=== PATIENT | female | born 1980 | race Caucasian/White ===

== ENCOUNTER 2018-09-13 10:48 | Emergency (ER) | payer BC, SELFPAY ==
[2018-09-13] VITALS (28 sets, daily range): BP systolic 110–122; BP diastolic 64–74; PULSE 54–82; RESP 12–28; TEMP 37.3; O2SAT 95–99
--- NOTE | 2018-09-13 11:09 | ED.GENADUL_ITS ---
Discharge Plan Disposition Patient Disposition: HOME Discharge Details Chief Complaint: Palpitatns Clinical Impression: Frequent unifocal PVCs Primary Care Provider: Isabell Polo ED Provider: Otilio Valencia Home Meds and New Rx's Prescriptions: New magnesium oxide 200 mg tablet,chewable 400 mg PO DAILY Qty: 60 RF: 0 Continued diltiazem HCl 120 mg Capsule,Extended Release 12 Hr 120 mg PO DAILY RF: 0 sertraline 50 mg Tablet 50 mg PO DAILY RF: 0 Discharge Instructions Additional Instructions: We will placed your name to obtain a follow-up with her employment attorney for recheck and to review results of your seal patch. Please follow-up with Dr. pringle in clinic for recheck. Begin magnesium oxide as prescribed daily. Return to the emergency department for any acute concerns Medical Decision Making 38-year-old female presents complaining of 4-5 days of intermittent episodes of palpitations. They are worsened when doing her barn chores. She states she was seen at [facility] emergency department and had labs obtained on . She was diagnosed with PVCs. She does take diltiazem daily for history of SVT which is managed by Dr. Osorio; she has seen Dr. Mina David at [facility] in cardiology She arrives with normal vital signs, and unremarkable exam. Screening laboratories obtained, records obtained from last week's visit to the [facility] ED. labs obtained September 10 include CBC, basic, magnesium. These did not have any significant finding. Laboratories obtained today: Unremarkable including d-dimer Patient will note increased stress; She does have a history of generalized anxiety continue to take sertraline. Regardless, her PVCs may be having short runs that were captured on monitor today. Therefore, patient placed on Zio patch, she will follow-up with Dr. Osorio in clinic, and as well at her request a local cardiology follow-up appointment was requested. We will trial oral magnesium to see if it aids in suppressing some of her PVCs. She understands return precautions to the ER Lab Data Lab results reviewed: Yes I reviewed the patient's lab results. Laboratory Tests Range/Units 09/13/18 09/13/18 09/13/18 11:05 11:05 11:05 WBC (4.4-10.8) k/cumm 5.03 RBC (4.00-5.20) m/cumm 4.60 Hgb (12.0-15.5) g/dL 14.0 Hct (36.0-46.0) % 40.6 MCV (80-95) fL 88.3 MCH (27.0-33.0) pg 30.4 MCHC (32.0-36.0) g/dL 34.5 RDW (11.7-14.6) % 12.6 Plt Count (130-400) x1000/uL 231 MPV (8.0-11.0) fL 9.7 Immature Gran % 0.2 Neutrophils % 68.6 Lymphocytes % 21.5 Monocytes % 9.3 Eosinophils % 0.2 Basophils % 0.2 Absolute Neutrophils (1.2-6.7) k/cumm 3.45 Absolute Lymphocytes (1.2-3.4) k/cumm 1.08 L Absolute Monocytes (0.11-0.7) k/cumm 0.47 Absolute Eosinophils (0.0-0.7) k/cumm 0.01 Absolute Basophils (0.0-0.2) k/cumm 0.01 D-Dimer (<500) ng/mlFEU 190 Sodium (136-145) mmol/L 138 Potassium (3.5-5.1) mmol/L 3.5 Chloride (98-107) mmol/L 103 Carbon Dioxide (21.0-32.0) mmol/L 26.7 Anion Gap (3-11) mmol/L 8.3 BUN (7-18) mg/dL 12 Creatinine (0.55-1.02) mg/dL 0.73 Estimated GFR/1.73 m2 (mL/min/1.73m2) >= 60.00 Glucose (70-100) mg/dL 93 Calcium (8.5-10.1) mg/dL 8.9 Magnesium (1.8-2.4) mg/dL 1.9 Total Bilirubin (0.2-1.0) mg/dL 0.9 AST (15-37) U/L 27 ALT (12-78) U/L 42 Alkaline Phosphatase (46-116) U/L 53 Troponin I (0.00-0.06) ng/mL 0.02 Total Protein (6.4-8.2) g/dL 7.4 Albumin (3.4-5.0) g/dL 4.1 ECG Data Attestation: I personally reviewed and interpreted this ECG (s) as follows: Interpretation: Normal sinus rhythm, rate of 64, QRS is narrow, no ST segment elevation HPI General Mode of arrival: ambulatory . Date/Time Provider Initiated Documentation: 09/13/18 10:52 . Limitations to Documentation: no limitations . Information obtained by: patient . History of Present Illness 38 year old F presents to the emergency department with the chief complaint of Palpitations, described as moderate and similar to prior episodes, Quality is described as other, and is localized to the chest. Patient reports no radiation. Patient started experiencing this day(s) and it has been intermittent. No relieving factors improve symptom(s), Other factors that worsen symptoms (Exertion) . Patient notes other (Anxiety and nausea); denies chest pain, cough, diaphoresis and shortness of breath. Patient did receive the following treatments prior to arrival, other (Seen at [facility] ER on ) HPI Narrative: Intermittent palpitations over days time, history of same, no change to medications. Related Data Home Medications Medication Instructions Recorded Confirmed diltiazem HCl 120 mg PO DAILY 09/13/18 09/13/18 magnesium oxide 400 mg PO DAILY #60 tab 09/13/18 sertraline 50 mg PO DAILY 09/13/18 09/13/18 Previous Rx's Medication Instructions Recorded magnesium oxide 400 mg PO DAILY #60 tab 09/13/18 Allergies Allergy/AdvReac Type Severity Reaction Status Date / Time Sulfa (Sulfonamide Allergy Unknown Unverified 09/13/18 10:57 Antibiotics) General Stated Complaint: Palpitatns GRAYSON: 3 Review of Systems Review of Systems 8 systems reviewed and otherwise negative [facility] Social History Smoking/Tobacco Use Status: Former Tobacco Use Exam Narrative Exam Narrative: GEN: awake, alert, oriented 3. Pleasant, well groomed, interactive. HEAD: Normocephalic, atraumatic ENT: Mucous membranes moist, oropharynx unremarkable, External ear exam unremarkable EYES: PERRL, EOMI NECK: Full ROM, no MAGGIE, no menigismus CHEST/RESP: Nontender, clear to auscultation bilateral, no wheeze/rhonchi/rales CARDIOVASCULAR: RRR, no murmur, rub alexander. 2+ Rad pulse bilateral ABDOMEN: Soft, nontender, no mass. +Bowel sounds EXT: Full ROM, no edema, no rash Neuro: Grossly normal neurologic exam, conversant, interactive. Psych: Speech fluent, thoughts congruent, affect normal Course Vital Signs Temperature 37.3 C 09/13/18 10:53 Pulse 60 09/13/18 10:53 Respiratory Rate 12 09/13/18 10:53 Blood Pressure 122/70 09/13/18 10:53 Pulse Oximetry 98 09/13/18 10:53 Temperature 37.3 C 09/13/18 10:53 Temperature Source Temporal Artery Scan 09/13/18 10:53 Pulse 60 09/13/18 10:53 Respiratory Rate 12 09/13/18 10:53 Respiratory Effort Non-Labored 09/13/18 10:55 Blood Pressure 122/70 09/13/18 10:53 Blood Pressure Position Sitting 09/13/18 10:53 Pulse Oximetry 98 09/13/18 10:53 Oxygen Delivery Method Room Air 09/13/18 10:53 Oxygen Flow Rate 0 09/13/18 10:53 Pain Level 0 09/13/18 10:53
[2018-09-13] MEDS: MAGNESIUM SULFATE 2 GM/50 ML BAG IVPB (11:11)
[2018-09-13] MEDS: Normal Saline 250 ML 500 ML IV (11:11)
[2018-09-13] MEDS: Normal Saline Flush 10 ML SYR IVP (11:12)
[2018-09-13 11:14] LABS: Abs Immature Grans 0.01 k/cumm (0.0-0.09); Absolute Basophil Count 0.01 k/cumm (0.0-0.2); Absolute Eosinophil Count 0.01 k/cumm (0.0-0.7); Absolute Lymphocyte Count 1.08 k/cumm (1.2-3.4); Absolute Monocyte Count 0.47 k/cumm (0.11-0.7); Absolute Neutrophil Count 3.45 k/cumm (1.2-6.7); Basophils % 0.2; Eosinophils % 0.2; HCT 40.6 % (36.0-46.0); Immature Grans % 0.2; Lymphocytes % 21.5; Mean Corp. HGB Concentration 34.5 g/dL (32.0-36.0); Mean Corpuscular Hemoglobin 30.4 pg (27.0-33.0); Mean Corpuscular Volume 88.3 fL (80-95); Mean Platelet Volume 9.7 fL (8.0-11.0); Monocytes % 9.3; Neutrophils % 68.6; Platelet Count 231 x1000/uL (130-400); RBC Distribution Width 12.6 % (11.7-14.6); White Blood Cell Count 5.03 k/cumm (4.4-10.8)
[2018-09-13 11:37] LABS: ALT 42 U/L (12-78); AST 27 U/L (15-37); Albumin 4.1 g/dL (3.4-5.0); Alkaline Phosphatase 53 U/L (46-116); Anion Gap 8.3 mmol/L (3-11); BUN 12 mg/dL (7-18); Bilirubin, Total 0.9 mg/dL (0.2-1.0); CO2 26.7 mmol/L (21.0-32.0); CREATININE 0.73 mg/dL (0.55-1.02); Calcium 8.9 mg/dL (8.5-10.1); Chloride 103 mmol/L (98-107); Glucose 93 mg/dL (70-100); Magnesium 1.9 mg/dL (1.8-2.4); Potassium 3.5 mmol/L (3.5-5.1); Sodium 138 mmol/L (136-145); Total Protein 7.4 g/dL (6.4-8.2); Troponin I 0.02 ng/mL (0.00-0.06)
[2018-09-13 11:44] LABS: D-Dimer 190 ng/mlFEU (<500)
--- NOTE | 2018-10-02 08:40 | ZIOP_ITS ---
ZIO PATCH INTERPRETATION DATE OF DICTATION October 02, 2018 STUDY INDICATION Palpitations. REQUESTING PROVIDER Otilio Valencia M.D. FINDINGS The patient was monitored for 13 days and 8 hours. COMMENTS The predominant underlying rhythm was sinus rhythm. Average heart rate in sinus rhythm, 78 beats per minute, range 46-176 beats per minute. There was a single 7-beat supraventricular run with an average heart rate of 177 beats per minute. Th is run was patient triggered. There were no pauses greater than 3 seconds. There was no higher degree heart block. SYMPTOMS There were 30 patient events. One event correlated with supraventricular tachycardia, all other event s did not correlate with arrhythmias. FINAL INTERPRETATION Paroxysmal supraventricular tachycardia, symptomatic. Nithin Kaur M.D. BRADY/homero T - 10/02/2018
== END 2018-09-13 13:32 | disposition home or self-care (01) ==
PROVIDERS: Emergency Provider Emergency Medicine; PCP Physician Assistant Medical
DX: I49.3 Ventricular premature depolarization (principal); I47.1 Supraventricular tachycardia
CPT/HCPCS: 36415; 80053; 93005; 93225; 96365; 96366; 99284; 83735; 84484; 85025; 85379; 93010

== ENCOUNTER 2023-02-14 12:36 | Emergency (ER) | payer BC, SELFPAY ==
[2023-02-14 12:52] VITALS: BP 115/67; PULSE 76; RESP 14; TEMP 37.3; O2SAT 97
[2023-02-14 13:21] LABS: Bilirubin Negative (Negative); Blood Trace-intact (Negative); Clarity Clear (Clear); Glucose Negative (Negative); Ketones Trace mg/dL (Negative); Leukocyte Esterase Negative (Negative); Nitrite Negative (Negative); Urobilinogen 0.2 mg/dL (Up to 0.2)
--- NOTE | 2023-02-14 13:30 | DI.CT_ITS ---
Exam(s) CT ABDOMEN PELVIS W EXAM: CT ABDOMEN PELVIS W CLINICAL HISTORY: left lower abdominal pain. TECHNIQUE: Imaging Protocol: Axial computed tomography images with coronal and sagittal reformatted images were created and reviewed CONTRAST MATERIAL: Intravenous: Omnipaque-350 100cc Oral: None COMPARISON: No exams were available for comparison FINDINGS: VISUALIZED LUNG BASES: There is some scarring in lower lobe. No pleural effusions.. ABDOMEN: There is no ascites in the upper abdomen. LIVER: There is a faint lesion in the right hepatic lobe which measures 1.2 by 0.9 cm. 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 No other focal hepatic lesions evident. No prominent dilated intrahepatic ducts. No dilate d intrahepatic ducts. GALLBLADDER/BILIARY: No obvious gallbladder pathology. CBD is not dilated. PANCREAS: No evidence of pancreatic mass nor dilatation of the pancreatic duct. SPLEEN: Spleen is not enlarged. No obvious intrasplenic lesions. Splenic and portal veins are paten t. ADRENALS: There are no significant adrenal masses. KIDNEYS:No cysts evident. No solid renal masses. No calculi nor hydronephrosis.. ABDOMINAL AORTA: Abdominal aorta is not enlarged. LYMPH NODES:There is no retroperitoneal nor paraaortic adenopathy. ABDOMINAL WALL: No evidence of significant anterior abdominal wall nor inguinal hernia. GI: There is no evidence of bowel obstruction, free air, nor abscess. PELVIS: GI: No evidence of appendicitis.Left side of the colon appears concentrically thickened although diff icult to assess oral contrast as the lumen is collapsed. Cannot rule out subtle colitis pattern in [facility] descending-left colon. There are no diverticuli in left side of the colon. LYMPH NODES: There is no intrapelvic nor inguinal adenopathy. REPRODUCTIVE: There is an IUD in the uterus. It appears somewhat asymmetric in position. Probably extending into t myometrium anteriorly. Uterus enhances inhomogeneously. No abnormal left adnexal findings there are 2 cystic structures in the right adnexa with some surrounding fluid. These cystic structures have similar appearance and b oth measure approximately 2 by 1.8 cm. Difficult to determine if these are peripherally enhancing ov gabriel cysts or part of dilated ipsilateral fallopian tube. There are dilated veins in the adnexal regions consistent with pelvic congestion syndrome. There is small-moderate amount of free fluid noted in the pelvis. URINARY BLADDER: Not distended. No mass nor obvious calculi. OSSEOUS: No fractures and no significant osseous lesions. IMPRESSION: 1. There is an IUD in the uterine cavity which appears somewhat twisted and may be in suboptimal posi tion. The uterus is not enhance homogeneously. 2. There are 2 cystic structures in the right adnexa both measuring approximately 2 x 1.8 cm. These may possibly OB ovarian cyst or related to a dilated ipsilateral fallopian tube. Similar findings no t seen in the left adnexa. 3. Dilated bilateral periuterine veins, left larger than right possibly element of pelvic congestion syndrome. 4. There is some free fluid in the pelvis which is possibly related to the right adnexal findings 5. Subtle suggestion of circumferential thickening of the descending-left colon, difficult to assess without oral contrast in the lumen. May represent element of colitis. RADIATION DOSE DELIVERED: 820.51mGy.cm Total DLP DATA REPOSITORY: All CT scans at this facility are submitted to the National Radiology Data Registry (NRDR) Dose Index Registry (DIR) with the [employer] (ACR). RADIATION OPTIMIZATION: All CT scans at this facility use at least one of these dose optimization te chniques: automated exposure control; mA and/or kV adjustment per patient size (includes targeted exa ms where dose is matched to clinical indication); or iterative reconstruction.
--- NOTE | 2023-02-14 13:30 | DI.US_ITS ---
Exam(s) US TRANSVAGINAL EXAM: US TRANSVAGINAL CLINICAL HISTORY: left lower abdominal pain TECHNIQUE: Ultrasound of the pelvis was performed both transabdominal and transvaginal. COMPARISON: US OB US 2-3 TRIMESTER TRANSABD*P from 04/14/2013 FINDINGS: UTERUS: There is an IUD in the endometrial canal. Appears be in satisfactory position. Uterus measures 8.5 cm length x 4.3 cm AP x 4.9 cm wide. There are no uterine fibroids. Endometrial thickness measures 5 mm. There is no fluid in the endometrial canal. CERVIX: There are no obvious nabothian cysts. RIGHT OVARY: Measures 4.2 x 2.2 x 2.7 cm Contains multiple cysts ranging up to 2 cm size LEFT OVARY: Measures 2.8 x 1.1 x 2.2 cm No significant cysts nor masses evident in the left ovary. There are prominent bilateral para uterine veins, more so on the left side and increasing with Valsal va. Consistent with pelvic congestion syndrome CUL-DE-SAC: No free fluid evident. IMPRESSION: 1. There is an IUD in the endometrial canal. 2. Are cysts in the right ovary measuring up to 2 cm. 3. Dilated periuterine veins, more so on the left side. Consistent with pelvic congestion. These ve ins usually drain into a dilated gonadal vein which itself drains into the left renal vein. DATA REPOSITORY:
[2023-02-14 13:32] LABS: Bacteria Few HPF (Negative); C & S Indicated? No; Casts Negative LPF (Negative); Crystals Negative HPF (Negative); Epithelial Cells Rare HPF (Negative); Mucus Moderate (Negative); Other Cells Negative (Negative); WBC Negative HPF (0-5)
[2023-02-14 14:04] LABS: Abs Immature Grans 0.01 10^3/uL (0.0-0.06); Absolute Basophil Count 0.02 10^3/uL (0.0-0.2); Absolute Eosinophil Count 0.03 10^3/uL (0.0-0.7); Absolute Lymphocyte Count 1.15 10^3/uL (1.2-3.4); Absolute Monocyte Count 0.56 10^3/uL (0.1-0.8); Absolute Neutrophil Count 3.71 10^3/uL (1.2-6.7); Basophils % 0.4; Eosinophils % 0.5; HCT 37.1 % (36.0-46.0); HGB 12.6 g/dL (11.2-15.7); Immature Grans % 0.2; MCH 29.5 pg (27.0-33.0); MCV 87 fL (80-95); MPV 9.7 fL (8.0-11.0); Monocytes % 10.2; Neutrophils % 67.7; Platelet Count 217 10^3/uL (130-400); RBC 4.27 10^6/uL (3.93-5.22); RDW 12.2 % (11.7-14.6); RDW-SD 39.5 fL; WBC 5.48 10^3/uL (4.4-10.8)
[2023-02-14 14:20] LABS: ALT 16 U/L (14-59); AST 13 U/L (15-37); Albumin 3.8 g/dL (3.4-5.0); Alkaline Phosphatase 37 U/L (46-116); Anion Gap 5.9 mmol/L (3-11); BUN 13 mg/dL (7-18); Bilirubin, Total 0.7 mg/dL (0.2-1.0); CO2 27.1 mmol/L (21.0-32.0); CREATININE 0.7 mg/dL (0.55-1.02); Calcium 8.9 mg/dL (8.5-10.1); Chloride 106 mmol/L (98-107); Estimated GFR 111.36 (mL/min/1.73m2); Glucose 112 mg/dL (74-106); Lipase 25 U/L (16-77); Potassium 3.6 mmol/L (3.5-5.1); Sodium 139 mmol/L (136-145); Total Protein 6.9 g/dL (6.4-8.2)
[2023-02-14] MEDS: Normal Saline - Diluent 50 ML VIAL IJ (15:24)
[2023-02-14] MEDS: Normal Saline Flush 10 ML SYR IVP (15:25)
[2023-02-14] MEDS: Omnipaque 350 MG/ML 100 ML BTL IJ (15:25)
--- NOTE | 2023-02-14 16:26 | W.ED.GENAD ---
Discharge Plan Disposition Patient Disposition: Home Discharge Details Clinical Impression: Pelvic congestion syndrome, IUD (intrauterine device) in place Primary Care Provider: Isabell Polo ED Provider: Shruthi Gonzales Home Meds and New Rx's Prescriptions: New oxycodone 5 mg capsule 5 mg PO BID PRNQty: 7 0RF Continued magnesium chloride 64 mg tablet,delayed release (DR/EC) 64 mg PO BID Qty: 60 11RF diltiazem HCl 120 mg Capsule,Extended Release 12 Hr 120 mg PO DAILY Patient Comments: no i do not take sertraline 50 mg tablet 37.5 mg PO DAILY Patient Comments: does not take anymore Discharge Instructions Additional Instructions: You likely have pelvic congestion syndrome and your IUD is slightly displaced on CT scan, recommendation to follow-up with [facility] Ibuprofen and Tylenol for pain I placed a referral for [facility] I would continue with your colonoscopy You have a lesion on your liver, I do recommend you follow-up with your doctor regarding this finding Oxycodone very sparingly, this can be addictive Please return earlier should you have new or worsening complaints Referrals: Isabell Polo [Primary Care Provider] - Chayo Moran DO [OSTEOPATHIC DOCTOR] - Discharge Data Discharge Date/Time-TO BE ENTERED AT DEPARTURE: 02/14/23 16:47 Medical Decision Making 42-year-old female, tenderness left lower quadrant, no rebound or guarding CT and labs are ordered for further differentiation Urinalysis does not show acute abnormality, negative test CT abdomen and pelvis with evidence of pelvic congestion syndrome and possible displacement of IUD Referred to [facility] Small amount of opiate analgesia with risk of addiction reviewed Ibuprofen and Tylenol recommended Will need close outpatient reassessment with primary care physician and gynecology Return precautions reviewed and patient expressed understanding HPI General Date/Time Provider Initiated Documentation: 02/14/23 13:20. HPI Narrative: This 42-year-old female presents with abdominal pain and diarrhea for the past week. Denies any fever or chills. Denies any chest pain or shortness of breath. Denies any urinary complaints or chance of . Denies any nausea or vomiting. Denies any exacerbating or alleviating factors. Related Data Home Medications Medication Instructions Recorded Confirmed diltiazem HCl 120 mg 120 mg PO DAILY 09/13/18 10/02/18 capsule,extended release 12 hr magnesium chloride 64 mg 64 mg PO BID PVC #60 tabs 10/02/18 02/14/23 (magnesium chloride) tablet,delayed release sertraline 50 mg tablet 37.5 mg PO DAILY 10/02/18 10/02/18 oxycodone 5 mg capsule 5 mg PO BID PRN #7 caps 02/14/23 Previous Rx's Medication Instructions Recorded magnesium chloride 64 mg 64 mg PO BID PVC #60 tabs 10/02/18 (magnesium chloride) tablet,delayed release oxycodone 5 mg capsule 5 mg PO BID PRN #7 caps 02/14/23 Allergies Allergy/AdvReac Type Severity Reaction Status Date / Time Sulfa (Sulfonamide Allergy Unknown Unverified 02/14/23 13:34 Antibiotics) metoprolol AdvReac Intermediate Itching Unverified 02/14/23 13:38 General Stated Complaint: Abd Prob GRAYSON: 3 PFSH All Active Problems Pelvic congestion syndrome (Acute) IUD (intrauterine device) in place (Acute) Social History Smoking/Tobacco Use Status: Former Tobacco Use Smoking risk assessment performed?: Yes Drug use: Never Do you feel safe at home: Yes Do you feel safe in your relationship?: Yes Exam Narrative Exam Narrative: Patient calm and cooperative, no scleral icterus, lungs clear to auscultation, abdominal tenderness, predominantly in the suprapubic and right lower quadrant, no rebound or guarding Course Vital Signs Vital signs: Vital Signs Temperature 37.3 C 02/14/23 12:52 Pulse 76 02/14/23 12:52 Respiratory Rate 14 02/14/23 12:52 Blood Pressure 115/67 02/14/23 12:52 Pulse Oximetry 97 02/14/23 12:52 Temperature 37.3 C 02/14/23 12:52 Temperature Source Skin 02/14/23 12:52 Pulse 76 02/14/23 12:52 Respiratory Rate 14 02/14/23 12:52 Respiratory Effort Normal, Non-Labored 02/14/23 13:23 Blood Pressure 115/67 02/14/23 12:52 Blood Pressure Position Sitting 02/14/23 12:52 Pulse Oximetry 97 02/14/23 12:52 Oxygen Delivery Method Room Air 02/14/23 12:52 Oxygen Flow Rate 0 05/26/23 12:52 Pain Level 6 02/14/23 12:52 Lab/Test Results Lab/Test Results: Laboratory Tests Range/Units 02/14/23 02/14/23 02/14/23 13:06 13:58 13:58 WBC (4.4-10.8) 10^3/uL 5.48 RBC (3.93-5.22) 10^6/uL 4.27 Hgb (11.2-15.7) g/dL 12.6 Hct (36.0-46.0) % 37.1 MCV (80-95) fL 87 MCH (27.0-33.0) pg 29.5 MCHC (32.0-36.0) % 34.0 RDW (11.7-14.6) % 12.2 Plt Count (130-400) 10^3/uL 217 MPV (8.0-11.0) fL 9.7 Immature Gran % 0.2 Neutrophils % 67.7 Lymphocytes % 21.0 Monocytes % 10.2 Eosinophils % 0.5 Basophils % 0.4 Nucleated RBC % (0.0-0.3) % 0.0 Absolute Neutrophils (1.2-6.7) 10^3/uL 3.71 Absolute Lymphocytes (1.2-3.4) 10^3/uL 1.15 L Absolute Monocytes (0.1-0.8) 10^3/uL 0.56 Absolute Eosinophils (0.0-0.7) 10^3/uL 0.03 Absolute Basophils (0.0-0.2) 10^3/uL 0.02 Sodium (136-145) mmol/L 139 Potassium (3.5-5.1) mmol/L 3.6 Chloride (98-107) mmol/L 106 Carbon Dioxide (21.0-32.0) mmol/L 27.1 Anion Gap (3-11) mmol/L 5.9 BUN (7-18) mg/dL 13 Creatinine (0.55-1.02) mg/dL 0.7 Est GFR (CKD-EPI 2020) (mL/min/1.73m2) 111.36 Glucose (74-106) mg/dL 112 H Calcium (8.5-10.1) mg/dL 8.9 Total Bilirubin (0.2-1.0) mg/dL 0.7 AST (15-37) U/L 13 L ALT (14-59) U/L 16 Alkaline Phosphatase (46-116) U/L 37 L Total Protein (6.4-8.2) g/dL 6.9 Albumin (3.4-5.0) g/dL 3.8 Lipase (16-77) U/L 25 Urine Color (Yellow) Yellow Urine Clarity (Clear) Clear Urine pH (5-8) 6.0 Ur Specific [place] (1.005-1.025) 1.020 Urine Protein (Negative) mg/dL Negative Urine Ketones (Negative) mg/dL Trace H Urine Blood (Negative) Trace-intact H Urine Nitrite (Negative) Negative Urine Bilirubin (Negative) Negative Urine Urobilinogen (Up to 0.2) mg/dL 0.2 Ur Leukocyte Esterase (Negative) Negative Urine RBC (0-2) HPF 3-5 H Urine WBC (0-5) HPF Negative Ur Epithelial Cells (Negative) HPF Rare Urine Crystals (Negative) HPF Negative Urine Bacteria (Negative) HPF Few Urine Casts (Negative) LPF Negative Urine Mucus (Negative) Moderate Urine Other (Negative) Negative Ur Culture Indicated? No Urine Glucose (Negative) mg/dL Negative POC- Test(urine) Negative
== END 2023-02-14 16:47 | disposition home or self-care (01) ==
PROVIDERS: Emergency Medicine; Emergency Provider Physician Assistant; PCP Physician Assistant Medical
DX: N94.89 Other specified conditions associated with female genital organs and menstrual cycle (principal); R93.2 Abnormal findings on diagnostic imaging of liver and biliary tract; T83.32XA Displacement of intrauterine contraceptive device, initial encounter
CPT/HCPCS: 80053; 81025; 83690; 99285; 74177; 76830; 81003; 81015; 85025; 99284; J3490